=== PATIENT | male | born 1990 | race Caucasian/White ===

== ENCOUNTER 2020-04-16 16:55 | Emergency (ER) | payer MEDICAID ==
[2020-04-16 17:07] VITALS: BP 145/74
== END 2020-04-16 19:05 | disposition left against medical advice (07) ==
LOC: ER 16:56
DX: L02.415 Cutaneous abscess of right lower limb (principal); F11.90 Opioid use, unspecified, uncomplicated; Z59.0 Homelessness; Z79.2 Long term (current) use of antibiotics
CPT/HCPCS: 99281